=== PATIENT | female | born 1985 | race Caucasian/White ===

== ENCOUNTER 2020-03-31 10:04 | Outpatient (CLI) | payer OTHER, SELFPAY ==
--- NOTE | ~2020-03-31 | US_ITS ---
EXAMINATION: US pelvic complete w TV DATE: 03/31/2020 11:26 INDICATION: Right ovarian dermoid TECHNIQUE: Multiple transabdominal and endovaginal sonographic images of the pelvis were obtained. COMPARISON: 07/15/2017 FINDINGS: The uterus measures 9.6 x 4.7 x 5.8 cm. The endometrial complex measures 5 mm in thickness. There are at least 6 small anechoic nabothian cysts at the cervix the largest measuring 11 mm. The right ovary measures 4.5 x 3.7 x 3.8 cm. There is a hyperechoic mass occupying the majority of the right ovary w hich measures approximately 3.8 x 3.3 x 3.7 cm with poor acoustic penetration which be consistent wit h fat and the provided history of a right ovarian dermoid. The left ovary measures 3.8 x 2.6 x 2.7 cm . 2.0 cm anechoic cyst/follicle at the left ovary. There is normal vascular flow in the ovaries. Ther e is no free fluid in the pelvis. IMPRESSION: 1. 3.8 x 3.3 x 3.7 cm hyperechoic mass in the right ovary which could be consistent with fat and repo rted history of right ovarian dermoid. Recommend correlation with any prior outside CT or MRI for con firmation. Reviewed, dictated and finalized at location A. IMPRESSION: 1. 3.8 x 3.3 x 3.7 cm hyperechoic mass in the right ovary which could be consis tent with fat and reported history of right ovarian dermoid. Recommend correlat ion with any prior outside CT or MRI for confirmation.
== END 2020-03-31 10:05 | disposition home or self-care (01) ==
PROVIDERS: PCP Internal Medicine; Visit Provider Student in an Organized Health Care Education/Training Program
DX: N83.9 Noninflammatory disorder of ovary, fallopian tube and broad ligament, unspecified (principal)
CPT/HCPCS: 76830; 76856

== ENCOUNTER 2020-09-06 15:29 | Outpatient (CLI) | payer OTHER, SELFPAY ==
[2020-09-06 16:12] LABS: Basophils Absolute Auto 0.1 K/mm3 (0.0-0.1); Basophils Percent Auto 0.6 % (0.2-1.2); Eosinophils Absolute Auto 0.1 K/mm3 (0-0.3); Eosinophils Percent Auto 1.2 % (0-4.4); Hematocrit 41.7 % (37.0-47.0); Hemoglobin 13.6 g/dL (12.0-15.0); Immature Granulocyte Absolute 0.04 K/mm3 (0.00-0.031); Immature Granulocyte Percent A 0.4 % (0-0.5); Lymphocytes Absolute Auto 2.76 K/mm3 (0.9-3.2); Lymphocytes Percent Auto 27.4 % (18.3-44.2); Mean Corpuscular HGB Conc 32.6 g/dl (32-36); Mean Corpuscular Hemoglobin 28.9 pg (26-34); Mean Corpuscular Volume 88.7 fl (80-100); Mean Platelet Volume 10.5 fl (7.4-10.4); Monocytes Absolute Auto 0.7 K/mm3 (0.1-0.6); Monocytes Percent Auto 7.3 % (2.6-8.5); Neutrophils Absolute Auto 6.4 K/mm3 (1.3-6.7); Neutrophils Percent Auto 63.1 % (45.5-73.1); Platelet Count Result 227 k/mm3 (150-375); Red Cell Distribution Width 12.5 % (11.5-14.5); White Blood Count 10.1 K/mm3 (4.5-10.0)
[2020-09-06 16:29] LABS: Alanine Aminotransferase 35 U/L (4-35); Alkaline Phosphatase 69 U/L (38-126); Anion Gap 5 mmol/L (8-16); Aspartate Amino Transferase 39 U/L (14-36); Bilirubin,Total 0.4 mg/dL (0.2-1.3); Blood Urea Nitrogen 11 mg/dL (7-17); Calcium 9.1 mg/dL (8.4-10.2); Carbon Dioxide 28 mmol/L (22-30); Chloride 104 mmol/L (98-107); Cholesterol 210 mg/dL (0-200); Estimated Glomerular Filt Rate > 60; Glucose 114 mg/dL (65-105); HDL Direct 51 mg/dL; Potassium 4.6 mmol/L (3.4-5.0); Sodium 137 mmol/L (137-145); Triglycerides 345 mg/dL (<150)
[2020-09-06 16:39] LABS: LDL Cholesterol Direct 107 mg/dL
== END 2020-09-06 15:30 | disposition home or self-care (01) ==
LOC: ANHWCLAB 15:31
PROVIDERS: PCP Internal Medicine; Visit Provider Nurse Practitioner
DX: Z13.228 Encounter for screening for other metabolic disorders (principal); Z13.220 Encounter for screening for lipoid disorders
CPT/HCPCS: 36415; 80053; 80061; 85025

== ENCOUNTER 2021-04-15 15:47 | Outpatient (CLI) | payer OTHER, SELFPAY ==
--- NOTE | ~2021-04-15 | US_ITS ---
EXAMINATION: US pelvic complete w TV DATE: 04/15/2021 16:59 INDICATION: Benign neoplasm. Right ovarian dermoid. Comparison:Ultrasound dated 03/31/2020 TECHNIQUE: Multiple transabdominal and endovaginal sonographic images of the pelvis performed. FINDINGS: The uterus measures 9.3 x 6.4 x 5.9 cm. The endometrial complex measures 1.4 cm. The right ovary measures 3.1 x 2.6 x 1.9 cm and the left ovary measures 3.1 x 1.8 x 1.5 cm. Right ova ry has a heterogeneous appearance with a slightly hyperechoic mass measuring up to 1.9 cm There are s mall follicles in each ovary. Normal doppler signal in both ovaries. There is no free fluid in the pelvis. There are no abnormal masses seen on either side. IMPRESSION: 1. Slightly hyperechoic 1.9 cm right ovarian mass which may correspond to known dermoid. Consider cor relation with CT. 2: Endometrial thickening measuring 1.4 cm. Reviewed, dictated and finalized at location B. IMPRESSION: 1. Slightly hyperechoic 1.9 cm right ovarian mass which may correspond to known dermoid. Consider correlation with CT. 2: Endometrial thickening measuring 1.4 cm.
== END 2021-04-15 15:48 | disposition home or self-care (01) ==
LOC: ANHIMG 15:51
PROVIDERS: PCP Internal Medicine; Visit Provider Student in an Organized Health Care Education/Training Program
DX: D36.9 Benign neoplasm, unspecified site (principal); N83.9 Noninflammatory disorder of ovary, fallopian tube and broad ligament, unspecified; R93.89 Abnormal findings on diagnostic imaging of other specified body structures
CPT/HCPCS: 76830; 76856

== ENCOUNTER 2021-08-16 10:09 | Outpatient (CLI) | payer OTHER, SELFPAY ==
--- NOTE | ~2021-08-16 | US_ITS ---
EXAMINATION: US OB <= 14 weeks fetus DATE: 08/16/2021 10:44 INDICATION: First trimester with inconclusive viability. TECHNIQUE: Real-time pelvic ultrasound utilizing both a transvaginal and transabdominal probe was pe rformed. The interpreting radiologist was not present for the study. COMPARISON: None. FINDINGS: The uterus measures 7.4 x 7.7 x 6.7 cm. There is an intrauterine gestational sac. A yolk sac and fet al pole are identified. The crown rump length measures 1.5 cm, which correlates with an estimated ges tational age of 7 weeks and 6 days. heart motion is identified measuring 161 beats per minute ( bpm) by M-mode Doppler. The right and left ovaries are not visualized. There is no free fluid in the pelvis. IMPRESSION: 1. Single living fetus with heart rate of 161 bpm. 2. Gestational age by ultrasound of 7 weeks 6 day(s) +/- 5 day(s) with ultrasound estimated date of delivery (JUNE) of 03/29/2022. Reviewed, dictated and finalized at location A. [employer] IMPRESSION: 1. Single living fetus with heart rate of 161 bpm. 2. Gestational age by ultrasound of 7 weeks 6 day(s) +/- 5 day(s) with ultraso und estimated date of delivery (JUNE) of 03/29/2022.
== END 2021-08-16 10:10 | disposition home or self-care (01) ==
LOC: ANHIMG 10:13
PROVIDERS: PCP Internal Medicine; Visit Provider Student in an Organized Health Care Education/Training Program
DX: O36.80X0 Pregnancy with inconclusive fetal viability, not applicable or unspecified (principal); D36.9 Benign neoplasm, unspecified site; Z3A.01 Less than 8 weeks gestation of pregnancy
CPT/HCPCS: 76801; 76817

== ENCOUNTER 2022-03-19 10:08 | Outpatient (CLI) | payer OTHER, SELFPAY ==
--- NOTE | 2022-03-19 11:20 | PC.NURSE ---
Dr. Hill informed of reactive NST and BP's. Order received to draw PIH labs and continue monitoring BP's
[2022-03-19 11:26] VITALS: BP 139/91; PULSE 84
[2022-03-19 11:46] LABS: Basophils Percent Auto 0.3 % (0.2-1.2); Eosinophils Absolute Auto 0.1 K/mm3 (0-0.3); Eosinophils Percent Auto 0.5 % (0-4.4); Hematocrit 37.9 % (37.0-47.0); Hemoglobin 12.2 g/dL (12.0-15.0); Immature Granulocyte Absolute 0.06 K/mm3 (0.00-0.031); Immature Granulocyte Percent A 0.6 % (0-0.5); Lymphocytes Absolute Auto 1.46 K/mm3 (0.9-3.2); Lymphocytes Percent Auto 15.1 % (18.3-44.2); Mean Corpuscular HGB Conc 32.2 g/dl (32-36); Mean Corpuscular Hemoglobin 27.7 pg (26-34); Mean Corpuscular Volume 86.1 fl (80-100); Mean Platelet Volume 10.7 fl (7.4-10.4); Monocytes Absolute Auto 0.7 K/mm3 (0.1-0.6); Monocytes Percent Auto 6.7 % (2.6-8.5); Neutrophils Absolute Auto 7.4 K/mm3 (1.3-6.7); Neutrophils Percent Auto 76.8 % (45.5-73.1); Platelet Count Result 190 k/mm3 (150-375); Red Cell Distribution Width 14.8 % (11.5-14.5); White Blood Count 9.7 K/mm3 (4.5-10.0)
[2022-03-19 11:52] LABS: Appearance Urine Clear (Clear); Bilirubin Urine Negative (Negative); Blood Urine Negative (Negative); Color Urine Yellow (Yellow); Glucose Urine UA Negative (Negative); Ketones Urine Negative (Negative); Leukocyte Esterase Ur Negative LEU/UL (Negative); Nitrate Urine Negative (Negative); Protein Urine Negative (Negative); Specific Grav Ur 1.015 (1.001-1.035); Urobilinogen Urine 0.2 mg/dL (<2.0)
[2022-03-19 12:01] LABS: Alanine Aminotransferase 15 U/L (6-35); Albumin Level 3.6 g/dL (3.5-5.1); Alkaline Phosphatase 87 U/L (38-126); Anion Gap 11 mmol/L (8-16); Aspartate Amino Transferase 17 U/L (14-36); Bilirubin,Total 0.2 mg/dL (0.2-1.3); Blood Urea Nitrogen 7 mg/dL (7-17); Calcium 9.6 mg/dL (8.4-10.2); Carbon Dioxide 23 mmol/L (22-30); Chloride 102 mmol/L (98-107); Estimated Glomerular Filt Rate > 60; Glucose 105 mg/dL (65-110); Sodium 136 mmol/L (137-145); Uric Acid 5.4 mg/dL (2.5-7.5)
[2022-03-19 12:02] LABS: Add Urine Microscopic? NO; Creatinine Urine 37.5 mg/dL; Total Protein Urine Random 20 mg/dL; Ur Ttl Prot Creatinine Ratio 0.53 mg/mg (0-0.20)
--- NOTE | 2022-03-19 12:57 | PC.NURSE ---
Dr. Hill informed of lab results and updated on BP's. wants BP's monitored for 4 hrs and call with update.
--- NOTE | 2022-03-19 15:04 | PC.NURSE ---
Dr. Hill updated on BP's. Order received to let pt go home to get bags, but to come back for cervidil induction of labor this evening.
== END 2022-03-19 15:10 | disposition home or self-care (01) ==
LOC: ANHOBOP 15:08
PROVIDERS: PCP Internal Medicine; Visit Provider Student in an Organized Health Care Education/Training Program
DX: O16.3 Unspecified maternal hypertension, third trimester (principal); Z3A.38 38 weeks gestation of pregnancy
CPT/HCPCS: 36415; 59025; 80053; 81003; 82570; 84156; 84550; 85025

== ENCOUNTER 2022-03-19 17:08 | Inpatient (IN) | payer OTHER, SELFPAY ==
[2022-03-19] VITALS (14 sets, daily range): BP systolic 120–150; BP diastolic 51–94; PULSE 83–98; BMI 43.7
--- NOTE | 2022-03-19 18:15 | LDADM ---
This patient, Urvashi Carson, was admitted to Labor/Delivery/Recovery 108 on 03/19/22 at 17:08. Plans for labor, pain management and were discussed with patient. Patient/family oriented to hospital policies and general routines including ID bracelet, bed and alarms, visiting hours, pain management, procedures, bathroom and other care routines, personal items, smoking policy, room service/diet and guest tray routines, security routines, and visiting hours. Patient/Family are encouraged to report perceived risks to care and to ask questions if they do not understand what they are told or what they should do. See OBIX for further documentation.
[2022-03-19 18:21] LABS: Basophils Percent Auto 0.3 % (0.2-1.2); Eosinophils Absolute Auto 0.1 K/mm3 (0-0.3); Eosinophils Percent Auto 0.6 % (0-4.4); Hemoglobin 12.3 g/dL (12.0-15.0); Immature Granulocyte Absolute 0.05 K/mm3 (0.00-0.031); Immature Granulocyte Percent A 0.5 % (0-0.5); Lymphocytes Absolute Auto 1.91 K/mm3 (0.9-3.2); Lymphocytes Percent Auto 17.6 % (18.3-44.2); Mean Corpuscular HGB Conc 33.2 g/dl (32-36); Mean Corpuscular Hemoglobin 28.2 pg (26-34); Mean Corpuscular Volume 84.9 fl (80-100); Mean Platelet Volume 11.9 fl (7.4-10.4); Monocytes Absolute Auto 0.6 K/mm3 (0.1-0.6); Monocytes Percent Auto 5.1 % (2.6-8.5); Neutrophils Absolute Auto 8.3 K/mm3 (1.3-6.7); Neutrophils Percent Auto 75.9 % (45.5-73.1); Platelet Count Result 197 k/mm3 (150-375); Red Blood Count 4.36 M/mm3 (4.2-5.4); Red Cell Distribution Width 14.6 % (11.5-14.5); White Blood Count 10.9 K/mm3 (4.5-10.0)
[2022-03-19] MEDS: DINOPROSTONE 10 MG VAG INSERT VAGINAL (19:03)
--- NOTE | 2022-03-19 19:50 | WPDANESEPP ---
Anes - Eval Pre Procedure Procedure: labor epidural Date/Time: 03/19/22 19:50 Pre Op Diagnosis: iol Patient Data Age: 37 Gender: F Height: 1.68 m Weight: 123 kg Last Vital Signs Pulse 84 03/19/22 19:46 BP 139/80 03/19/22 19:46 O2 Del Method Room Air 03/19/22 18:14 Allergies Allergy/AdvReac Type Severity Reaction Status Date / Time animal dander Allergy Mild Hives Verified 03/19/22 09:16 grass pollen Allergy Mild Sneezing Verified 03/19/22 09:16 tree and shrub pollen Allergy Mild Sneezing Verified 03/19/22 09:16 Home Medications Medication Instructions Recorded Confirmed Type prenat.vits,brennen,vyl-[id number] 1 tablet PO DAILY 08/13/21 03/19/22 History sertraline 25 mg tablet 25 mg PO DAILY #30 tabs 01/01/22 03/19/22 Rx sertraline 50 mg tablet 50 mg PO DAILY 03/19/22 03/19/22 History Laboratory Tests 03/19/22 03/19/22 03/19/22 18:11 18:11 18:11 WBC 10.9 K/mm3 H K/mm3 (4.5-10.0) RBC 4.36 M/mm3 M/mm3 (4.2-5.4) Hgb 12.3 g/dL g/dL (12.0-15.0) Hct 37.0 % % (37.0-47.0) MCV 84.9 fl fl (80-100) MCH 28.2 pg pg (26-34) MCHC 33.2 g/dl g/dl (32-36) RDW 14.6 % H % (11.5-14.5) Plt Count 197 k/mm3 k/mm3 (150-375) MPV 11.9 fl H fl (7.4-10.4) Immature Gran % (Auto) 0.5 % % (0-0.5) Neut % (Auto) 75.9 % H % (45.5-73.1) Lymph % (Auto) 17.6 % L % (18.3-44.2) Crawford % (Auto) 5.1 % % (2.6-8.5) Eos % (Auto) 0.6 % % (0-4.4) Baso % (Auto) 0.3 % % (0.2-1.2) Lymph # (Auto) 1.91 K/mm3 K/mm3 (0.9-3.2) Crawford # (Auto) 0.6 K/mm3 K/mm3 (0.1-0.6) Eos # (Auto) 0.1 K/mm3 K/mm3 (0-0.3) Baso # (Auto) 0.0 K/mm3 K/mm3 (0.0-0.1) Abs Immat Gran (auto) 0.05 K/mm3 H K/mm3 (0.00-0.031) Absolute Neuts (auto) 8.3 K/mm3 H K/mm3 (1.3-6.7) Absolute Nucleated RBC 0.0 K/mm3 K/mm3 (0.0-0.012) Nucleated RBC % 0.0 % % (0.0-0.2) RPR Pending Blood Type A Positive Antibody Screen Negative Patient hx anesthesia problems: none Family hx anesthesia problems: none Results Review: All pre-operative results and documents have been reviewed as part of the pre-operative evaluation. [facility] Past Medical History Medical History Allergies Anxiety Depression Dermoid cyst of ovary removed Heartburn Vaginal delivery x 3 Surgical History Surgical History S/P laparoscopic surgery Family History Family History Father Diabetes mellitus Hypertension Family history of alcoholism Grandparent Family history of malignant neoplasm of ovary Sibling Family history of alcoholism Mother Anxiety and depression Social History Social History Smoking status: Never smoker Alcohol intake: current Alcohol use details: rarely Substance use: never Spiritual care concerns: No Exam Day of Procedure 03/19/22 19:50 Patient weight: morbidly obese Heart: regular rate and rhythm Lungs: normal air movement Airway: Mallampati scale Neurological: alert and oriented
[2022-03-19] MEDS: ZOLPIDEM TARTRATE (*CRX) 5 MG TABLET PO ×2 (22:54→23:32)
[2022-03-20] VITALS (113 sets, daily range): BP systolic 99–170; BP diastolic 53–106; PULSE 72–116; TEMP 36.4–36.6; O2SAT 95–100
[2022-03-20] MEDS: miSOPROStol 50 MCG TABLET PO ×2 (08:01→12:00)
--- NOTE | 2022-03-20 08:29 | PM.IMHP ---
H&P: HPI History of Present Illness Date/Time: 03/20/22 08:29 Chief Complaint: Induction of labor Narrative: Patient is a 37-year-old LMP 06/21/2021 currently 38 weeks 6 days gestation with JUNE 03/28 22. Patient is dated by LMP consistent with ultrasound on 08/16/2021 at 7 weeks gestation. Patient presented to labor and delivery on the evening of 03/19/2022 for induction of labor. During routine visit yesterday, an elevated blood pressure measurement was noted. Patient was sent to labor and delivery for further evaluation and monitoring. Over the next several hours, blood pressure in measurements were intermittently elevated confirming diagnosis of gestational hypertension. She did not, however, have any measurements in the severe range. Decision was made to proceed with induction of labor. Patient reports occasional contractions. Denies any vaginal bleeding or leakage of fluid. Reports good movement. Otherwise, patient is asymptomatic. Denies any headache, chest pain, shortness of breath, nausea, vomiting, RUQ tenderness, or visual disturbances. Review of Systems Review of Systems: All systems reviewed & are unremarkable except as noted in HPI and below Constitutional: Constitutional: Reports as per HPI and Reports no additional constitutional complaints Eyes: Eyes: Reports as per HPI and Reports no additional eye complaints ENT: Reports system reviewed and no additional complaints, except as documented and Reports as per HPI Cardiovascular: Cardiovascular: Reports as per HPI and Reports no additional cardiovascular complaints Respiratory: Respiratory: Reports as per HPI and Reports no additional respiratory complaints Gastrointestinal: Gastrointestinal: Reports as per HPI and Reports no additional gastrointestinal complaints Genitourinary: Genitourinary: Reports no additional female genitourinary complaints and Reports as per HPI Musculoskeletal: Musculoskeletal: Reports no additional musculoskeletal complaints and Reports as per HPI Integumentary/Breasts: Skin/Breast: Reports system reviewed and no additional complaints, except as docu and Reports as per HPI Neurologic: Reports system reviewed and no additional complaints, except as documented and Reports as per HPI Psychiatric: Psychiatric: Reports no additional psychiatric complaints and Reports as per HPI Endocrine: Endocrine: Reports no additional endocrine complaints and Reports as per HPI Hematologic/Lymphatic: Hematologic/Lymphatic: Reports no additional hematologic/lymphatic complaints and Reports as per HPI Allergic/Immunologic: Allergic/Immunologic: Reports no additional allergic/immunologic complaints and Reports as per HPI [facility] Past Medical History Medical History Allergies Anxiety Depression Dermoid cyst of ovary removed Heartburn Vaginal delivery x 3 Surgical History Surgical History S/P laparoscopic surgery Family History Family History Father Diabetes mellitus Hypertension Family history of alcoholism Grandparent Family history of malignant neoplasm of ovary Sibling Family history of alcoholism Mother Anxiety and depression Social History Social History Smoking status: Never smoker Alcohol intake: current Alcohol use details: rarely Substance use: never Spiritual care concerns: No Meds Home Medications and Allergies Home Medications Medication Instructions Recorded Confirmed Type prenat.vits,brennen,zsf-[id number] 1 tablet PO DAILY 08/13/21 03/19/22 History sertraline 25 mg tablet 25 mg PO DAILY #30 tabs 01/01/22 03/19/22 Rx sertraline 50 mg tablet 50 mg PO DAILY 03/19/22 03/19/22 History Allergies Allergy/AdvReac Type Severity Reaction Status Date / Time animal dander A
--- NOTE | 2022-03-20 08:35 | WPDHPUPDATE1 ---
History and Physical Update Update Date/Time: 03/20/22 08:35 History and Physical has been reviewed, including an updated exam of the patient. There are NO changes in the patient's condition. Risks, benefits, and alternatives have been discussed and questions answered. Patient agrees to proceed with procedure.
[2022-03-20 15:52] LABS: Rapid Plasma Reagin Non-Reactive (NonReactive)
--- NOTE | 2022-03-20 16:31 | PM.OBPNLAB ---
Pain Control Date/time seen: 03/20/22 16:31 Patient doing well. Reports increase in pressure with walking. Also reports feeling contractions. Limited sono performed confirming vertex presentation. SVE 3/-3. AROM, clear fluid noted. EFM category 1. [place] showed irregular contractions. s/p cytotec x 2 doses. Begin pitocin. Pt requesting an epidural.
[2022-03-20] MEDS: OXYTOCIN 30 UNITS/NS 500 ML 30 UNITS/500 ML BAG IV CONT (17:21)
[2022-03-20] MEDS: LACTATED RINGERS 1,000 ML 125 ML IV CONT ×2 (17:23→21:33)
--- NOTE | 2022-03-20 22:40 | P.PCNOB_ITS ---
OB - Delivery Note Procedure Procedure: The patient is a 37-year-old now who presented to labor and delivery on 03/19/2022 at 38 weeks 5 days gestation for induction of labor secondary to newly diagnosed gestational hypertension. Initial cervical exam was closed and thick. Induction of labor was started with Cervidil. Cervidil was placed and remained in place for approximately 12 hours after which it was removed. Cervical exam was still closed. Cytotec PO was administered x2 doses. The patient made cervical change to approximately 3 cm dilated. Artificial rupture of membranes was performed at 4:15 p.m. Clear amniotic fluid was noted. Pitocin was started for labor augmentation. The patient became uncomfortable and requested an epidural for pain management which was placed without difficulty. Patient continued to make progressive cervical change and was found be fully dilated at 10:10 p.m. Patient was prepped and draped for delivery. At 10:24 p.m., patient delivered infant head atraumatically without difficulty in YOBANI presentation. Occiput restituted to maternal left side. A nuchal cord x1 was noted and easily reduced. With subsequent push, the 's neck, shoulders, and rest of body delivered without difficulty. Infant was placed on maternal abdomen where care was assumed by awaiting nursing staff. Nose and mouth were suctioned with bulb suction. began to cry spontaneously. Delayed cord clamping was performed for approximately 60 seconds. Cord was clamped and cut. A segment of cord was collected for cord gases. Cord blood was collected. The placenta was delivered spontaneously and intact. Uterine fundus was noted to be firm with massage. On inspection, no lacerations were noted. Estimated blood loss for entire delivery was 150 cc. The infant was a liveborn female , Apgars 8 and 9, weighing 8 lbs. 3 oz. Both mother and baby doing well at end of delivery. Events: Gestational Hypertension Induction method: Per Misoprostol Protocol and Per Cervidil Protocol Delivery augmentation: Rupture of Membranes and Pitocin Delivery monitor: External FHT and External Uterine Route of delivery: Laceration Description: None Specimen: Yes (placenta, cord blood, and cord gases) Quantitative Blood Loss (ml): 150 Anesthesia type: Epidural Disposition: Floor Complications: No immediate complications [place] Baby Date of : 03/20/22 Time of : 22:24 Weeks of gestation at delivery: 38 (38.6) Infant gender: Female Weight (pounds): 8 Weight (ounces): 3 presentation: vertex position: Left Occiput Anterior Placenta delivery description: Spontaneous Cord Vessel Description: 3 Vessels, Nuchal Cord (x1) and Delayed Cord Clamping (x60s) score one minute: 8 score five minutes: 9 AMG Delivery Billing Delivery Delivery: Delivery Charge
[2022-03-20] MEDS: OXYTOCIN 30 UNITS/NS 500 ML 30 UNITS/500 ML BAG 125 UNITS IV CONT (23:06)
[2022-03-20] MEDS: IBUPROFEN 600 MG TABLET PO (23:48)
[2022-03-21] VITALS (14 sets, daily range): BP systolic 130–156; BP diastolic 66–94; PULSE 79–96; RESP 16–18; TEMP 36.6–36.8; O2SAT 97–99
[2022-03-21] MEDS: BENZOCAINE 20% AER SPR (*SP) 56 GM CAN 1 SPRAY TOPICAL (02:06)
[2022-03-21] MEDS: WITCH HAZEL 40 PADS 1 PAD TOPICAL (02:06)
--- NOTE | 2022-03-21 02:30 | OBPPTRN ---
Patient transferred to post room #282 via wheelchair. Support person present. Oriented to unit, room, information board, rooming in, admission packet and security measures. Patient verbalizes understanding.
[2022-03-21 05:46] LABS: Hematocrit 35.7 % (37.0-47.0); Hemoglobin 11.3 g/dL (12.0-15.0)
[2022-03-21] MEDS: IBUPROFEN 600 MG TABLET PO ×2 (09:23→17:50)
[2022-03-21] MEDS: SERTRALINE HCL 25 MG TABLET PO (09:25)
[2022-03-21] MEDS: SERTRALINE HCL 50 MG TABLET PO (09:25)
[2022-03-21] MEDS: DOCUSATE SODIUM 100 MG CAPSULE PO ×2 (09:25→17:50)
--- NOTE | 2022-03-21 11:46 | WPDANLDPN2 ---
Anes-Prog Note L&D Date/Time: 03/21/22 11:46 Comfortable throughout: labor and delivery Neuraxial method: epidural Epidural/Spinal procedure site: clean & non-tender Neuro status: Neuro function grossly intact. Cardiovascular status: normal Respiratory status: normal Airway patency: baseline Mental status: baseline Post-Op hydration status: normal Vital Signs: Last Vital Signs Temp 36.6 C 03/21/22 08:20 Pulse 96 03/21/22 08:20 Resp 18 03/21/22 08:20 BP 133/82 03/21/22 08:20 Pulse Ox 98 03/21/22 08:20 O2 Del Method Room Air 03/21/22 02:40 Pain score (VAS): 2 I/O: Intake & Output 03/20/22 03/21/22 03/21/22 23:59 07:59 15:59 Intake Total 1550 Output Total 178 Balance 1550 -178 Post-procedural complaints: none Patient feedback: Patient satisfied with anesthetic care.
--- NOTE | 2022-03-21 15:30 | PM.OBPNVD ---
OB - PN: Subj Subjective Date/time seen: 03/21/22 15:30 Patient doing well. Reports mild cramping that is well controlled with medication. Minimal lochia. Ambulating without difficulty. Voiding well. Denies any headache, chest pain, shortness of breath, nausea, vomiting, right upper quadrant tenderness, or visual disturbances. OB - PN: Obj Data Labs CBC & Chem 7: 03/21/22 04:47 Labs: Laboratory Results - last 24 hr 03/19/22 03/21/22 18:11 04:47 Hgb 11.3 L Hct 35.7 L RPR Non-reactive OB - PN A/P Assessment and Plan (1) Normal spontaneous vaginal delivery: Code(s): O80 - Encounter for full-term uncomplicated delivery Status: Acute Assessment and Plan: PPD#1 doing well continue routine care anticipate dc home tomorrow (2) Gestational hypertension: Code(s): O13.9 - Gestational [-induced] hypertension without significant proteinuria, unspecified trimester Status: Acute Assessment and Plan: asymptomatic continue to monitor vitals and symptoms Time Spent With Patient Time: Total time spent is greater than 50% in coordination of care (as documented) at patient's floor/unit and/or counseling patient: Review of Systems Review of Systems: All systems reviewed & are unremarkable except as noted in HPI and below Exam Const: General: cooperative, comfortable and no acute distress GI: Inspection: non-distended GI Palp: Yes Soft to palpation and No Tenderness to palpation present (GI) Other: fundus firm below umbilicus Extrem: Right lower extremity: no edema Left lower extremity: no edema Other: no calf tenderness
[2022-03-22] MEDS: IBUPROFEN 600 MG TABLET PO ×2 (01:30→11:36)
[2022-03-22 05:30] VITALS: BP 126/85
[2022-03-22] MEDS: HYDROcodone/acetaminophen (*CRX) 10-325 MG TABLET 1 TAB PO (05:35)
--- NOTE | 2022-03-22 10:38 | PM.OBPNVD ---
OB - PN: Subj Subjective Date/time seen: 03/22/22 10:38 Patient doing well today. Reported headache overnight, however, resolved with medication. Denies any chest pain, shortness of breath, nausea, or vomiting. Bleeding minimal lochia. Ambulating without difficulty. Voiding well. OB - PN: Obj Data Labs CBC & Chem 7: 03/21/22 04:47 OB - PN A/P Assessment and Plan (1) Normal spontaneous vaginal delivery: Code(s): O80 - Encounter for full-term uncomplicated delivery Status: Acute Assessment and Plan: PPD#2 doing well continue routine care dc home in stable condition emergency precautions reviewed f/u in office in 1 week for BP check Time Spent With Patient Time: Total time spent is greater than 50% in coordination of care (as documented) at patient's floor/unit and/or counseling patient: Review of Systems Review of Systems: All systems reviewed & are unremarkable except as noted in HPI and below Exam Const: General: cooperative, comfortable and no acute distress GI: Inspection: non-distended GI Palp: Yes Soft to palpation and No Tenderness to palpation present (GI) Extrem: Right lower extremity: no edema Left lower extremity: no edema Other: no calf tenderness
--- NOTE | 2022-03-22 10:47 | PM.OBDSVD ---
DS: Admitting Diagnosis Discharge Date Admitting Diagnosis IUP at 38w5d Gestational hypertension DS: Discharge Diagnosis Discharge Diagnosis (1) Normal spontaneous vaginal delivery: Code(s): O80 - Encounter for full-term uncomplicated delivery Status: Acute (2) Gestational hypertension: Code(s): O13.9 - Gestational [-induced] hypertension without significant proteinuria, unspecified trimester Status: Acute OB - DS: Summary OB Procedures : PIH Mgmt OB Procedures Intrapartum: Spontaneous Vag Delivery OB Procedures: : None Time Spent with Patient Time attestation: Total time spent providing and/or coordinating discharge services: DS: Data Data Completed and Pending Pending studies at discharge: Pending at discharge 03/20/22 22:30 Surgical [PTH] Routine Discharge Plan Discharge Attending physician on discharge: April Hill Discharging Clinician: April Hill Anticipated Discharge Date/Time: 03/22/22 10:48 Patient Disposition: Home, Self-Care Activity: as tolerated Diet: regular Discharge Instructions: Call office ([phone]) to schedule the following appointments: 1. BP check in 1 week. 2. visit in 4-6 weeks. You may take Ibuprofen 600mg every 6 hours as needed for pain. Pain medication may make you constipated. It may be helpful to take an [id number] stool softener, such as Colace and/or Senokot, along with the pain medication to help lessen constipation. I have sent a prescription to your pharmacy for a blood pressure monitor. Please take your BP at home twice per day and record in a log. Notify office or go to L&D for SBP (top number) >160 or DBP (bottom number) >110. Call office or go to ED for pain not controlled with medication, headache, chest pain, shortness of breath, fever, chills, persistent nausea or vomiting, severe abdominal pain, visual disturbances, heavy vaginal bleeding >2 pads/hour, foul vaginal discharge or odor, or problems with your breasts. Patient Instructions: Antibiotic Form Stand Alone Forms: General Discharge Information Follow-up/Referrals: April Hill MD [Physician] - Discharge Medications: New (DME) blood pressure kit med and lrg Kit See Rx Instructions .Route Qty: 1 0RF Rx Instructions: As directed Continued prenat.vits,brennen,[id number]-[id number] Tablet 1 tablet PO DAILY sertraline 25 mg tablet 25 mg PO DAILY Qty: 30 2RF Rx Instructions: To be taken with the 50mg tablet to equal 75mg daily sertraline 50 mg tablet 50 mg PO DAILY Rx Instructions: Pt takes 25 and 50 mg tablets to total 75 mg daily Date of admission: 03/19/22 17:08 Primary Care Provider: Hardeep Lopez Admitting Provider: April Hill Attending physician on admission: April Hill Condition: Stable
[2022-03-22 11:37] VITALS: BP 134/88; PULSE 93; RESP 97; TEMP 36.2; O2SAT 16
[2022-03-22] MEDS: DOCUSATE SODIUM 100 MG CAPSULE PO (11:37)
[2022-03-24 08:29] VITALS: BP 137/86; PULSE 86; RESP 20; TEMP 37.1; O2SAT 98
== END 2022-03-22 14:35 | disposition home or self-care (01) | DRG 560 ==
LOC: ANHLDR 17:11 → ANHOB2 03-21 02:35
PROVIDERS: Admitting Provider Student in an Organized Health Care Education/Training Program; PCP Internal Medicine; Visit Provider Student in an Organized Health Care Education/Training Program
DX: O13.4 Gestational [pregnancy-induced] hypertension without significant proteinuria, complicating childbirth (principal); O99.344 Other mental disorders complicating childbirth; F32.A Depression, unspecified; F41.8 Other specified anxiety disorders; O69.81X0 Labor and delivery complicated by cord around neck, without compression, not applicable or unspecified; Z3A.38 38 weeks gestation of pregnancy; Z37.0 Single live birth
CPT/HCPCS: 36415; 59025; 80053; 81003; 82570; 84156; 84550; 85014; 85018; 85025; 86592; 86850; 86900; 86901; 88307; A9270; J2590; J2795; J7120

== ENCOUNTER 2022-03-23 14:54 | Outpatient (CLI) | payer OTHER, SELFPAY ==
[2022-03-23 15:43] LABS: Basophils Percent Auto 0.4 % (0.2-1.2); Eosinophils Absolute Auto 0.2 K/mm3 (0-0.3); Eosinophils Percent Auto 1.8 % (0-4.4); Hematocrit 37.6 % (37.0-47.0); Hemoglobin 12.2 g/dL (12.0-15.0); Immature Granulocyte Absolute 0.04 K/mm3 (0.00-0.031); Immature Granulocyte Percent A 0.5 % (0-0.5); Lymphocytes Absolute Auto 1.65 K/mm3 (0.9-3.2); Lymphocytes Percent Auto 19.6 % (18.3-44.2); Mean Corpuscular HGB Conc 32.4 g/dl (32-36); Mean Corpuscular Hemoglobin 28.2 pg (26-34); Mean Corpuscular Volume 86.8 fl (80-100); Mean Platelet Volume 10.6 fl (7.4-10.4); Monocytes Absolute Auto 0.5 K/mm3 (0.1-0.6); Monocytes Percent Auto 5.5 % (2.6-8.5); Neutrophils Absolute Auto 6.1 K/mm3 (1.3-6.7); Neutrophils Percent Auto 72.2 % (45.5-73.1); Platelet Count Result 198 k/mm3 (150-375); Red Blood Count 4.33 M/mm3 (4.2-5.4); Red Cell Distribution Width 14.8 % (11.5-14.5); White Blood Count 8.4 K/mm3 (4.5-10.0)
[2022-03-23 15:57] VITALS: RESP 16
[2022-03-23 16:11] LABS: Alanine Aminotransferase 22 U/L (6-35); Albumin Level 3.4 g/dL (3.5-5.1); Alkaline Phosphatase 85 U/L (38-126); Anion Gap 9 mmol/L (8-16); Aspartate Amino Transferase 28 U/L (14-36); Bilirubin,Total 0.3 mg/dL (0.2-1.3); Blood Urea Nitrogen 10 mg/dL (7-17); Calcium 8.9 mg/dL (8.4-10.2); Carbon Dioxide 23 mmol/L (22-30); Chloride 104 mmol/L (98-107); Estimated Glomerular Filt Rate > 60; Glucose 164 mg/dL (65-110); Potassium 3.9 mmol/L (3.4-5.0); Sodium 136 mmol/L (137-145); Uric Acid 6.8 mg/dL (2.5-7.5)
--- NOTE | 2022-03-23 16:24 | PC.NURSE ---
[id number]- SPoke with Dr. Hill, labs and Bp's reviewed. Per Dr. Hill, patient to get XL BP cuff for home use. Also, to keep follow up appt scheduled for 8 am tomm and bring current BP cuff to check size tomorrow. Patient agreeable to plan
[2022-03-23 16:26] VITALS: TEMP 36.7
== END 2022-03-23 16:27 | disposition home or self-care (01) ==
LOC: ANHOBOP 14:58
PROVIDERS: PCP Internal Medicine; Visit Provider Student in an Organized Health Care Education/Training Program
DX: O13.9 Gestational [pregnancy-induced] hypertension without significant proteinuria, unspecified trimester (principal); Z3A.00 Weeks of gestation of pregnancy not specified
CPT/HCPCS: 36415; 80053; 84550; 85025